=== PATIENT | male | born 1960 | race Caucasian/White ===

== ENCOUNTER → 2023-04-27 | Day surgery (SDC) | payer BC ==
[2023-04-26 08:26] VITALS: BMI 27.1
[~2023-04-27] MED LIST: LACTATED RINGERS 1,000 ML IV SCH; LIDOCAINE 1% (10MG/ML) FOR IV START INTRADERMA PRN; PROPOFOL 10 MG/ML 20 ML VIAL IV ONE
[2023-04-27 08:28] VITALS: TEMP 97.5
--- NOTE | 2023-04-27 09:38 | P.GSHP ---
History of Present Illness H&P Date: 04/27/23 Chief Complaint: screeningg colonoscopy this is a 62-year-old male presents today for screening colonoscopy. Patient denies any significant GI complaints. Past Medical History Past Medical History: Prostate Disorder History of Any Multi-Drug Resistant Organisms: None Reported Past Surgical History: Orthopedic Surgery Additional Past Surgical History / Comment(s): CERVICAL FUSION. RT ACL REPAIR. COLONOSCOPY Past Anesthesia/Blood Transfusion Reactions: No Reported Reaction Smoking Status: Never smoker - Past Family History Father Family Medical History: Cancer Medications and Allergies Home Medications Medication Instructions Recorded Confirmed Type Finasteride [Proscar] 5 mg PO HS 04/26/23 04/27/23 History Allergies Allergy/AdvReac Type Severity Reaction Status Date / Time No Known Allergies Allergy Verified 04/26/23 08:20 Surgical - Exam Vital Signs Temp Pulse Resp BP Pulse Ox 97.5 F L 88 14 123/88 99 04/27/23 08:25 04/27/23 08:25 04/27/23 08:25 04/27/23 08:25 04/27/23 08:25 - General well developed, well nourished, no distress - Eyes PERRL - ENT normal pinna - Neck no masses - Respiratory normal expansion - Cardiovascular Rhythm: regular - Abdomen Abdomen: soft, non tender Assessment and Plan Assessment: we'll perform screening colonoscopy
--- NOTE | 2023-04-27 09:52 | P.OP ---
Date of Procedure: 04/27/23 Preoperative Diagnosis: reading colonoscopy Postoperative Diagnosis: mild diverticulosis Procedure(s) Performed: colonoscopy Anesthesia: MAC Surgeon: Frank Adler Pathology: none sent Condition: stable Disposition: PACU Description of Procedure: the patient's placed on the endoscopy table in the lateral position. He received IV sedation. Digital rectal exam was performed. This revealed no abnormalities. Flexible colonoscope was then placed patient anus and passed throughout the entire colon. The ileocecal valve was visualized. The cecum, ascending and transverse colon appeared normal. In the descending and; was mild diverticular changes. Scope was then brought back into the rectum and this appeared normal. Scope withdrawn for patient.
[2023-04-27 09:58] VITALS: RESP 16
[2023-04-27 10:12] VITALS: BP 112/57; PULSE 75
== END | disposition home or self-care (01) ==
LOC: ORWHC2ENDO 08:05
PROVIDERS: ATTEND Surgery
DX: Z12.11 Encounter for screening for malignant neoplasm of colon (principal); K57.30 Diverticulosis of large intestine without perforation or abscess without bleeding; N40.0 Benign prostatic hyperplasia without lower urinary tract symptoms; Z98.890 Other specified postprocedural states; Z79.899 Other long term (current) drug therapy
CPT/HCPCS: 45378; J2704